=== PATIENT | male | born 1995 | race Two or more races ===

== ENCOUNTER 2017-10-27 22:05 | Emergency (ER) | payer SELFPAY ==
[2017-10-27] MEDS: LIDOCAINE WITH 8.4% SOD BICARB 3 ML DISP.SYRIN. INJ (22:30)
[2017-10-27] MEDS: DIPHTH,PERTUSS(ACELL),TET TOX 0.5 ML DISP.SYRIN. VAX IM (22:53)
== END 2017-10-27 22:53 | disposition home or self-care (01) ==
LOC: ER 22:05
DX: S61.011A Laceration without foreign body of right thumb without damage to nail, initial encounter (principal); W45.8XXA Other foreign body or object entering through skin, initial encounter; Y93.89 Activity, other specified; Y92.89 Other specified places as the place of occurrence of the external cause; Y99.8 Other external cause status
CPT/HCPCS: 12001; 90471; 90715; 99283